=== PATIENT | female | born 1975 | race Caucasian/White ===

== ENCOUNTER 2019-01-18 20:50 | Emergency (ER) | payer MEDICAID ==
[2019-01-18] MEDS ORDERED: Ketorolac 30 MG/ML SDV IVPUSH ONE (21:16)
--- NOTE | 2019-01-18 21:53 | EDM.PDOC ---
ED HPI GENERAL MEDICAL PROBLEM - General Chief Complaint: General Stated Complaint: SHAKING,RT SIDE BACK PAIN Time Seen by Provider: 01/18/19 21:30 Source of Information: Reports: Patient History Limitations: Reports: No Limitations - History of Present Illness INITIAL COMMENTS - FREE TEXT/NARRATIVE: Rt side pain,for 3 weeks. Described as burning,severe.Radiates to or from the back,Associated with incontinence or urine,dysuria.Unable to ambulate. Has a h/ o pacemaker ,JEANETTE,and has had Appy,cholecystectomy and SIMONA - Related Data Allergies Allergy/AdvReac Type Severity Reaction Status Date / Time No Known Allergies Allergy Verified 01/18/19 21:20 Home Meds: Home Meds DULoxetine [Cymbalta] 20 mg PO DAILY 01/18/19 [History] Pantoprazole Sodium [Protonix] 40 mg PO DAILY 01/18/19 [History] clonazePAM [Klonopin] 1 mg PO DAILY 01/18/19 [History] Social & Family History - Family History Family Medical History: Noncontributory - Tobacco Use Smoking Status *Q: Never Smoker Second Hand Smoke Exposure: No - Caffeine Use Caffeine Use: Reports: Coffee - Recreational Drug Use Recreational Drug Use: No ED ROS GENERAL - Review of Systems Review Of Systems: ROS reveals no pertinent complaints other than HPI. ED EXAM, GENERAL - Physical Exam Exam: See Below Exam Limited By: No Limitations General Appearance: Alert Nose: Normal Inspection Throat/Mouth: Normal Inspection Head: Atraumatic Neck: Normal Inspection Respiratory/Chest: No Respiratory Distress, Lungs Clear Cardiovascular: Normal Peripheral Pulses GI/Abdominal: No Distention, Guarding, Tender. No: Rigid, Mass, Splenomegaly (Female) Exam: Deferred Rectal (Female) Exam: Deferred Back Exam: Normal Inspection, CVA Tenderness (R), Paraspinal Tenderness Extremities: Normal Inspection Course - Vital Signs Last Recorded V/S: Last Vital Signs Temp 98.2 F 01/18/19 21:00 Pulse 90 01/18/19 21:00 Resp 18 01/18/19 21:00 BP 153/85 H 01/18/19 21:00 Pulse Ox 100 01/18/19 21:00 - Orders/Labs/Meds Orders: Active Orders 24 hr Category Date Time Status Abdomen Pelvis wo Cont [CT] Stat Exams 01/18/19 21:16 Taken Labs: Laboratory Tests 01/18/19 01/18/19 01/18/19 Range/Units 21:25 21:25 21:25 WBC 7.9 (4.5-12.0) X10-3/uL RBC 4.44 (3.23-5.20) x10(6)uL Hgb 13.4 (11.5-15.5) g/dL Hct 39.9 (30.0-51.3) % MCV 90.0 (80-96) fL MCH 30.3 (27.7-33.6) pg MCHC 33.6 (32.2-35.4) g/dL RDW 12.1 (11.5-15.5) % Plt Count 275 (125-369) X10(3)uL MPV 8.8 (7.4-10.4) fL Neut % (Auto) 58.3 (46-82) % Lymph % (Auto) 33.6 (13-37) % [place] % (Auto) 3.8 L (4-12) % Eos % (Auto) 4 (1.0-5.0) % Baso % (Auto) 1 (0-2) % Neut # (Auto) 4.6 (1.6-8.3) # Lymph # (Auto) 2.6 (0.6-5.0) # [place] # (Auto) 0.3 (0.0-1.3) # Eos # (Auto) 0.3 (0.0-0.8) # Baso # (Auto) 0.1 (0.0-0.2) # Sodium 142 (135-145) mmol/L Potassium 3.8 (3.5-5.3) mmol/L Chloride 106 (100-110) mmol/L Carbon Dioxide 26 (21-32) mmol/L BUN 15 (7-18) mg/dL Creatinine 0.9 (0.55-1.02) mg/dL Est Cr Clr Drug Dosing TNP Estimated GFR (MDRD) > 60 (>60) BUN/Creatinine Ratio 16.7 (9-20) Glucose 111 (80-116) mg/dL Lactic Acid 0.7 (0.4-2.2) mmol/L Calcium 8.2 L (8.6-10.2) mg/dL Total Bilirubin 0.4 (0.1-1.3) mg/dL AST 15 (5-25) IU/L ALT 28 (12-36) U/L Alkaline Phosphatase 117 H (56-112) IU/L C-Reactive Protein (0.5-0.9) mg/dL Total Protein 6.7 (6.0-8.0) g/dL Albumin 3.6 (3.5-5.2) g/dL Globulin 3.1 g/dL Albumin/Globulin Ratio 1.2 Amylase 38 (25-115) U/L Urine Color (YELLOW) Urine Appearance (CLEAR) Urine pH (5.0-6.5) Ur Specific [place] (1.010-1.025) Urine Protein (NEGATIVE) mg/dL Urine Glucose (UA) (NORMAL) mg/dL Urine Ketones (NEGATIVE) mg/dL Urine Occult Blood (NEGATIVE) Urine Nitrite (NEGATIVE) Urine Bilirubin (NEGATIVE) Urine Urobilinogen (NEGATIVE) mg/dL Ur Leukocyte Esterase (NEGATIVE) Urine RBC (0-5) Urine WBC (0-5) Ur Squamous Epith Cells (NS,R,O) Urine Bacteria (NS) Urine Mucus (NS) 01/18/19 01/18/19 Range/Units 21:25 21:40 WBC (4.5-12.0) X10-3/uL RBC (3.23-5.20) x10(6)uL Hgb (11.5-15.5) g/dL Hct (30.0-51.3) % MCV (80-96) fL MCH (27.7-33.6) pg MCHC (32.2-35.4) g/dL RDW (11.5-15.5) % Plt Count (125-369) X10(3)uL MPV (7.4-10.4) fL Neut % (Auto) (46-82) % Lymph % (Auto) (13-37) % [place] % (Auto) (4-12) % Eos % (Auto) (1.0-5.0) % Baso % (Auto) (0-2) % Neut # (Auto) (1.6-8.3) # Lymph # (Auto) (0.6-5.0) # [place] # (Auto) (0.0-1.3) # Eos # (Auto) (0.0-0.8) # Baso # (Auto) (0.0-0.2) # Sodium (135-145) mmol/L Potassium (3.5-5.3) mmol/L Chloride (100-110) mmol/L Carbon Dioxide (21-32) mmol/L BUN (7-18) mg/dL Creatinine (0.55-1.02) mg/dL Est Cr Clr Drug Dosing Estimated GFR (MDRD) (>60) BUN/Creatinine Ratio (9-20) Glucose (80-116) mg/dL Lactic Acid (0.4-2.2) mmol/L Calcium (8.6-10.2) mg/dL Total Bilirubin (0.1-1.3) mg/dL AST (5-25) IU/L ALT (12-36) U/L Alkaline Phosphatase (56-112) IU/L C-Reactive Protein < 0.2 L (0.5-0.9) mg/dL Total Protein (6.0-8.0) g/dL Albumin (3.5-5.2) g/dL Globulin g/dL Albumin/Globulin Ratio Amylase (25-115) U/L Urine Color Yellow (YELLOW) Urine Appearance Clear (CLEAR) Urine pH 5.0 (5.0-6.5) Ur Specific [place] 1.020 (1.010-1.025) Urine Protein Negative (NEGATIVE) mg/dL Urine Glucose (UA) Normal (NORMAL) mg/dL Urine Ketones Negative (NEGATIVE) mg/dL Urine Occult Blood Negative (NEGATIVE) Urine Nitrite Negative (NEGATIVE) Urine Bilirubin Small H (NEGATIVE) Urine Urobilinogen Normal (NEGATIVE) mg/dL Ur Leukocyte Esterase Negative (NEGATIVE) Urine RBC 0-5 (0-5) Urine WBC 0-5 (0-5) Ur Squamous Epith Cells Occasional (NS,R,O) Urine Bacteria Rare H (NS) Urine Mucus Few H (NS) Meds: Medications Discontinued Medications Generic Name Dose Route Start Last Admin Trade Name Freq PRN Reason Stop Dose Admin Ketorolac Tromethamine 30 mg 01/18/19 21:16 01/18/19 21:55 Toradol IVPUSH 01/18/19 21:17 30 mg ONETIME ONE Administration Departure - Departure Time of Disposition: 22:48 Disposition: Home, Self-Care 01 Condition: Good Clinical Impression: Side pain - Discharge Information Referrals: PCP,None [Primary Care Provider] - Forms: ED Department Discharge - Problem List & Annotations (1) Side pain SNOMED Code(s): 806048807 Code(s): R10.9 - UNSPECIFIED ABDOMINAL PAIN Status: Acute Current Visit: Yes (2) Incontinence of urine in female SNOMED Code(s): 017268449 Code(s): R32 - UNSPECIFIED URINARY INCONTINENCE Status: Acute Current Visit: Yes - Problem List Review Problem List Initiated/Reviewed/Updated: Yes - My Orders Last 24 Hours: My Active Orders 01/18/19 21:16 Abdomen Pelvis wo Cont [CT] Stat - Assessment/Plan Last 24 Hours: My Active Orders 01/18/19 21:16 Abdomen Pelvis wo Cont [CT] Stat Plan: CT abd pelvis was negative. UA and CBC,CMP was neg as well.DC home-establish and follow up with PCP
== END 2019-01-18 23:10 | disposition home or self-care (01) ==
LOC: FB.ED 20:50
DX: R10.9 Unspecified abdominal pain (principal); Z79.899 Other long term (current) drug therapy
CPT/HCPCS: 36415; 74176; 80053; 81001; 82150; 83605; 85025; 86140; 96374; 99284-25; J1885

== ENCOUNTER 2019-03-28 14:44 | Emergency (ER) | payer MEDICAID ==
[2019-03-28] MEDS ORDERED: Aspirin 81 MG Tab.Chew PO ONE (14:57)
--- NOTE | 2019-03-28 15:08 | EDM.PDOC ---
ED HPI GENERAL MEDICAL PROBLEM - General Chief Complaint: Chest Pain Stated Complaint: CHEST PRESSURE Time Seen by Provider: 03/28/19 14:44 Source of Information: Reports: Patient History Limitations: Reports: No Limitations - History of Present Illness INITIAL COMMENTS - FREE TEXT/NARRATIVE: 43 y.o.w.f S/P Hysterectomy, was seen at [facility] clinic and sent to the ED to evaluate for C/P and dizzy spells. 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 Pt has a strong FH of CAD. Has a H/O elevated cholesterol. Dizziness is getting worse when she moves her head to either side. Pt was brought by Wheel chair to te ED. No N/V/D no SOB or any other acute med issues. BP 147/90 RR 18 Pulse ox 100% on RA pulse 71 Temp 36.6 Onset Date: 03/28/19 Onset Time: 06:00 Duration: Hour(s):, Heavy, Intermittent Location: Reports: Chest Quality: Reports: Dull Severity: Moderate Improves with: Reports: Rest Worsens with: Reports: Movement Context: Reports: Other Associated Symptoms: Reports: Chest Pain Middle Chest Pain Score (Numeric/FACES): 2 - Related Data Allergies Allergy/AdvReac Type Severity Reaction Status Date / Time No Known Allergies Allergy Verified 03/28/19 14:58 Home Meds: Home Meds Pantoprazole Sodium [Protonix] 40 mg PO DAILY 01/18/19 [History] clonazePAM [Klonopin] 1 mg PO BID 01/18/19 [History] Meclizine [Antivert] 25 mg PO TID PRN #10 tab 03/28/19 [Rx] Social & Family History - Family History Family Medical History: Noncontributory - Caffeine Use Caffeine Use: Reports: Coffee ED ROS GENERAL - Review of Systems Review Of Systems: See Below Constitutional: Reports: No Symptoms HEENT: Reports: No Symptoms Respiratory: Reports: No Symptoms Cardiovascular: Reports: Chest Pain Endocrine: Reports: No Symptoms GI/Abdominal: Reports: No Symptoms : Reports: No Symptoms Musculoskeletal: Reports: No Symptoms Skin: Reports: No Symptoms Neurological: Reports: Dizziness Psychiatric: Reports: No Symptoms Hematologic/Lymphatic: Reports: No Symptoms Immunologic: Reports: No Symptoms ED EXAM, GENERAL - Physical Exam Exam: See Below Exam Limited By: No Limitations General Appearance: Alert, WD/WN, Mild Distress Eye Exam: Bilateral Eye: Normal Inspection Ears: Normal External Exam, Normal Canal Ear Exam: Bilateral Ear: Auricle Normal Nose: Normal Inspection, Normal Mucosa Throat/Mouth: Normal Inspection, Normal Lips, Normal Voice, No Airway Compromise Head: Atraumatic, Normocephalic Neck: Normal Inspection, Supple, Non-Tender Respiratory/Chest: No Respiratory Distress, Lungs Clear, Normal Breath Sounds Cardiovascular: Normal Peripheral Pulses, Regular Rate, Rhythm, No Edema, No Gallop, No Murmur Peripheral Pulses: 1+: Brachial (L) GI/Abdominal: Normal Bowel Sounds, Soft, Non-Tender (Female) Exam: Deferred Rectal (Female) Exam: Deferred Back Exam: Normal Inspection, Full Range of Motion Extremities: Normal Inspection, Normal Range of Motion, Non-Tender Neurological: Alert, Oriented, CN II-XII Intact, Normal Cognition, Normal Gait Psychiatric: Normal Affect, Normal Mood Skin Exam: Warm, Dry, Intact, Normal Color, No Rash Lymphatic: No Adenopathy EKG INTERPRETATION EKG Date: 03/28/19 Time: 14:45 Rhythm: NSR Rate (Beats/Min): 66 [place]: Normal P-Wave: Present QRS: Normal ST-T: Normal QT: Normal Comparison: NA - No Prior EKG Course - Vital Signs Text/Narrative:: 43 y.o.w.f S/P Hysterectomy, was seen at [facility] clinic and sent to the ED to evaluate for C/P and dizzy spells. 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 Pt has a strong FH of CAD. Has a H/O elevated cholesterol. Dizziness is getting worse when she moves her head to either side. Pt was brought by Wheel chair to te ED. No N/V/D no SOB or any other acute med issues. BP 147/90 RR 18 Pulse ox 100% on RA pulse 71 Temp 36.6 PE: WNWD w f with dizzy spells and Chest pressure off/on. Imaging: CXR: NAD as per RAD Labs: CBC, BMP Nl except Gluc was 66 Ua NL Troponin was neg on 2 occasions. 2nd ECG: ST depression on leads 1 aVl subsided Impressin: atypical chest pain, vertigo Tx: ASA, Antivert 3.24 pm Consultation: [facility] to fax most recent ECG 2017 5.05 pm: Consultation: Dr. Hogan, Hospitalist: Repeat Troponin in 3 hours, if neg Home with F/U Reexam: Pt was improving, pt was stable in the ED Plan: D/C with instructions Last Recorded V/S: Last Vital Signs Temp 36.7 C 03/28/19 19:05 Pulse 63 03/28/19 19:05 Resp 14 03/28/19 19:05 BP 128/74 03/28/19 19:05 Pulse Ox 100 03/28/19 19:05 - Orders/Labs/Meds Orders: Active Orders 24 hr Category Date Time Status EKG Documentation Completion [RC] ASDIRECTED Care 03/28/19 17:06 Active Chest 1V Frontal [CR] Stat Exams 03/28/19 14:57 Taken EKG 12 Lead [EK] Routine Ther 03/28/19 18:05 Ordered Labs: Laboratory Tests 03/28/19 03/28/19 03/28/19 Range/Units 15:05 15:05 15:05 WBC 6.5 (4.5-12.0) X10-3/uL RBC 4.32 (3.23-5.20) x10(6)uL Hgb 13.4 (11.5-15.5) g/dL Hct 38.7 (30.0-51.3) % MCV 89.8 (80-96) fL MCH 31.1 (27.7-33.6) pg MCHC 34.7 (32.2-35.4) g/dL RDW 12.1 (11.5-15.5) % Plt Count 260 (125-369) X10(3)uL MPV 8.6 (7.4-10.4) fL Neut % (Auto) 54.5 (46-82) % Lymph % (Auto) 33.0 (13-37) % [place] % (Auto) 5.0 (4-12) % Eos % (Auto) 7 H (1.0-5.0) % Baso % (Auto) 1 (0-2) % Neut # (Auto) 3.5 (1.6-8.3) # Lymph # (Auto) 2.2 (0.6-5.0) # [place] # (Auto) 0.3 (0.0-1.3) # Eos # (Auto) 0.4 (0.0-0.8) # Baso # (Auto) 0.1 (0.0-0.2) # PT 9.4 (8.7-11.1) INR 0.97 (0.89-1.13) D-Dimer, Quantitative 0.29 (0.0-0.59) mg/LFEU Sodium 144 (135-145) mmol/L Potassium 3.7 (3.5-5.3) mmol/L Chloride 107 (100-110) mmol/L Carbon Dioxide 27 (21-32) mmol/L BUN 15 (7-18) mg/dL Creatinine 0.9 (0.55-1.02) mg/dL Est Cr Clr Drug Dosing 78.38 mL/min Estimated GFR (MDRD) > 60 (>60) BUN/Creatinine Ratio 16.7 (9-20) Glucose 66 L (80-116) mg/dL Calcium 8.7 (8.6-10.2) mg/dL Magnesium (1.8-2.5) mg/dL Troponin I (<0.017-0.056) ng/mL 03/28/19 03/28/19 03/28/19 Range/Units 15:05 15:05 18:05 WBC (4.5-12.0) X10-3/uL RBC (3.23-5.20) x10(6)uL Hgb (11.5-15.5) g/dL Hct (30.0-51.3) % MCV (80-96) fL MCH (27.7-33.6) pg MCHC (32.2-35.4) g/dL RDW (11.5-15.5) % Plt Count (125-369) X10(3)uL MPV (7.4-10.4) fL Neut % (Auto) (46-82) % Lymph % (Auto) (13-37) % [place] % (Auto) (4-12) % Eos % (Auto) (1.0-5.0) % Baso % (Auto) (0-2) % Neut # (Auto) (1.6-8.3) # Lymph # (Auto) (0.6-5.0) # [place] # (Auto) (0.0-1.3) # Eos # (Auto) (0.0-0.8) # Baso # (Auto) (0.0-0.2) # PT (8.7-11.1) INR (0.89-1.13) D-Dimer, Quantitative (0.0-0.59) mg/LFEU Sodium (135-145) mmol/L Potassium (3.5-5.3) mmol/L Chloride (100-110) mmol/L Carbon Dioxide (21-32) mmol/L BUN (7-18) mg/dL Creatinine (0.55-1.02) mg/dL Est Cr Clr Drug Dosing mL/min Estimated GFR (MDRD) (>60) BUN/Creatinine Ratio (9-20) Glucose (80-116) mg/dL Calcium (8.6-10.2) mg/dL Magnesium 1.9 (1.8-2.5) mg/dL Troponin I < 0.017 L < 0.017 L (<0.017-0.056) ng/mL Meds: Medications Discontinued Medications Generic Name Dose Route Start Last Admin Trade Name Freq PRN Reason Stop Dose Admin Aspirin 324 mg 03/28/19 14:57 03/28/19 14:52 Aspirin PO 03/28/19 14:58 324 mg ONETIME ONE Administration Meclizine HCl 25 mg 03/28/19 15:23 03/28/19 15:44 Antivert PO 03/28/19 15:24 25 mg ONETIME ONE Administration Departure - Departure Time of Disposition: 18:45 Disposition: Home, Self-Care 01 Condition: Good (atypi) Clinical Impression: Atypical chest pain, Vertigo Prescriptions: Meclizine [Antivert] 25 mg PO TID PRN #10 tab PRN Reason: Dizziness Instructions: Vertigo, [id number], Nonspecific Chest Pain, [id number] Referrals: PCP,None [Primary Care Provider] - Forms: ED Department Discharge, ED Return to Work/School Form Additional Instructions: Please take Antivert for dizziness. Please increase fluid intake please f/.u with your PMD, coem back if your symptoms get worse acutely - My Orders Last 24 Hours: My Active Orders 03/28/19 14:57 Chest 1V Frontal [CR] Stat 03/28/19 17:06 EKG Documentation Completion [RC] ASDIRECTED 03/28/19 18:05 EKG 12 Lead [EK] Routine - Assessment/Plan Last 24 Hours: My Active Orders 03/28/19 14:57 Chest 1V Frontal [CR] Stat 03/28/19 17:06 EKG Documentation Completion [RC] ASDIRECTED 03/28/19 18:05 EKG 12 Lead [EK] Routine
[2019-03-28] MEDS ORDERED: Meclizine 25 MG Tab PO ONE (15:23)
--- NOTE | 2019-03-31 09:49 | CR ---
INDICATION: Chest pain. CHEST: A single AP upright portable view of the chest was obtained 03/28/19 - no comparisons. The heart is normal in size and shape. A pacemaker is noted in place with only one lead visualized. Overlying EKG leads are noted. An active infiltrate or effusion was not identified. IMPRESSION: No acute process. Report was called to Dr. Helm at 1545 hours on 03/28/19. [facility]
== END 2019-03-28 19:10 | disposition home or self-care (01) ==
LOC: FB.ED 14:44
DX: R07.89 Other chest pain (principal); R42 Dizziness and giddiness; Z79.899 Other long term (current) drug therapy
CPT/HCPCS: 36415; 71045; 80048; 82962; 83735; 84484; 85025; 85379; 85610; 93005; 99285; A9270